=== PATIENT | female | born 1950 | race Caucasian/White ===

== ENCOUNTER → 2020-07-21 | Outpatient (CLI) | payer MEDICARE ==
[~2020-07-21] MED LIST: CEFUROXIME500 MG PO; KEFLEX CAP 500500 MG PO; LEXAPRO10 MG PO; PYRIDIUM100 MG PO; PYRIDIUM200 MG PO; SYNTHROID75 MCG PO; XYZAL5 MG PO; ZOFRAN ODT 4 MG4 MG PO
== END ==
LOC: KOH-I 15:08
DX: M25.561 Pain in right knee (principal); M17.11 Unilateral primary osteoarthritis, right knee
CPT/HCPCS: 73562

== ENCOUNTER 2020-11-28 07:55 | Emergency (ER) | payer MEDICARE ==
[~2020-11-28 07:55] MED LIST changes: -CEFUROXIME500 MG PO; -PYRIDIUM200 MG PO
[2020-11-28] MEDS ORDERED: PYRIDIUM200 MG PO (09:18)
[2020-11-28] MEDS ORDERED: CEFUROXIME500 MG PO (09:18)
== END 2020-11-28 09:40 | disposition home or self-care (01) ==
LOC: ER1 07:55
DX: N39.0 Urinary tract infection, site not specified (principal); E03.9 Hypothyroidism, unspecified; Z90.710 Acquired absence of both cervix and uterus; Z79.899 Other long term (current) drug therapy
CPT/HCPCS: 81001; 87086; 99284

== ENCOUNTER 2020-12-01 02:14 | Emergency (ER) | payer MEDICARE ==
[~2020-12-01 02:14] MED LIST changes: +CEFUROXIME500 MG PO; +PYRIDIUM200 MG PO
== END 2020-12-01 02:56 | disposition home or self-care (01) ==
LOC: ER1 02:14
DX: R68.2 Dry mouth, unspecified (principal); Z87.440 Personal history of urinary (tract) infections
CPT/HCPCS: 99283

== ENCOUNTER → 2021-07-01 | Outpatient (CLI) | payer MEDICARE ==
[~2021-07-01] VITALS: Ht 152.4 cm; Wt 79.4 kg
== END ==
LOC: EROP 15:04
DX: U07.1 COVID-19 (principal); Z23 Encounter for immunization
CPT/HCPCS: 96365

== ENCOUNTER → 2021-08-09 | Outpatient (CLI) | payer MEDICARE | LOC: KOH-I 14:57 | DX: M54.50 Low back pain, unspecified (principal); M51.36 Other intervertebral disc degeneration, lumbar region | CPT/HCPCS: 72100 ==